=== PATIENT | female | born 1960 | race Caucasian/White ===

== ENCOUNTER 2017-07-16 15:22 | Outpatient (CLI) ==
[2017-07-16 15:49] LABS: BASOPHILS % (AUTO) 0.3 % (0.0-3.0); EOSINOPHILS # (AUTO) 0.2 K/ul (0.0-0.7); EOSINOPHILS % (AUTO) 2.3 % (0.0-7.0); HEMATOCRIT 41.9 % (37.0-47.0); HEMOGLOBIN 14.3 g/dl (12.0-16.0); IMMATURE GRANULOCYTE % (AUTO) 0.4 % (0.0-5.0); LYMPHOCYTES # (AUTO) 2.8 K/uL (0.60-3.4); MEAN CORPUSCULAR HEMOGLOBIN 30.5 pg (27.0-31.0); MEAN CORPUSCULAR HGB CONC 34.1 (31.8-35.4); MEAN CORPUSCULAR VOLUME 89.3 fl (81.0-99.0); MONOCYTES # (AUTO) 0.7 K/uL (0.4-2.0); MONOCYTES % (AUTO) 6.8 (0-10); NEUTROPHILS % (AUTO) 61.2; PLATELET COUNT 242 10^3/uL (140-440); RED BLOOD COUNT 4.69 10^6/ul (4.20-5.40); WHITE BLOOD COUNT 9.74 K/ul (4.6-10.2)
[2017-07-16 15:56] LABS: BILIRUBIN,URINE Negative (NEGATIVE); KETONES,URINE Negative (NEGATIVE); LEUKOCYTE ESTERASE ,URINE Negative (NEGATIVE); NITRITE,URINE Negative (NEGATIVE); PROTEIN,URINE Negative (NEGATIVE); URINE, BLOOD 1+ (NEGATIVE)
[2017-07-16 15:58] LABS: ADD URINE MICROSCOPIC YES
--- NOTE | 2017-07-16 16:00 | US ---
EXAM: Bilateral carotid artery Doppler History: Visual impairment Technique: Multiple sonographic images through the bilateral internal carotid arteries were obtained . Color duplex Doppler was used to interrogate vascular flow. Findings: The right ICA peak systolic velocities within normal limits measuring 1.2. Meters per second. The r ight ICA/cca PSV ratio is normal at 1.5. The right vertebral artery is patent and demonstrates anteg rade flow. Nicholson scale images demonstrate mild plaque buildup within the right internal carotid arter y. The left ICA peak systolic velocities within normal limits measuring 0.7 meters per second. The left ICA/cca PSV ratio is normal at 1.1. The left vertebral artery is patent and demonstrates antegrade flow. Nicholson scale images demonstrate mild plaque buildup within the left internal carotid artery Impression: No significant hemodynamic stenosis of the bilateral internal carotid arteries.
[2017-07-16 16:08] LABS: ALBUMIN 3.9 g/dL (3.4-5.0); ALBUMIN/GLOBULIN RATIO 1.08; ANION GAP 14.9; BILIRUBIN,TOTAL 0.47 mg/dL (0.00-1.20); BUN/CREATININE RATIO 19.04; CALCIUM 9.9 mg/dL (8.2-10.2); CHOL/HDL RATIO 3.2 (4.5-5.5); CREATININE 0.63 mg/dL (0.60-1.30); POTASSIUM 3.9 mmol/L (3.5-5.10); TOTAL PROTEIN 7.5 g/dL (6.4-8.2)
[2017-07-16 16:12] LABS: BACTERIA,URINE TRACE (NOT PRESENT)
== END 2017-07-16 15:23 | disposition home or self-care (01) ==
LOC: RAD 15:22
PROVIDERS: ATTEND General Practice
DX: R09.89 Other specified symptoms and signs involving the circulatory and respiratory systems (principal); H18.51 Endothelial corneal dystrophy
CPT/HCPCS: 36415; 80053; 80061; 81001; 85025

== ENCOUNTER 2017-07-30 08:35 | Outpatient (CLI) ==
[2017-07-30 14:13] LABS: BILIRUBIN,URINE Negative (NEGATIVE); KETONES,URINE Negative (NEGATIVE); LEUKOCYTE ESTERASE ,URINE Negative (NEGATIVE); NITRITE,URINE Negative (NEGATIVE); PROTEIN,URINE Negative (NEGATIVE); URINE, BLOOD 1+ (NEGATIVE)
[2017-07-30 14:14] LABS: ADD URINE MICROSCOPIC YES
--- NOTE | 2017-07-31 08:33 | MAMMO ---
EXAM: Bilateral digital screening mammogram (2-D and 3-D) History: Baseline screening. Findings: MLO and CC views of bilateral breasts demonstrate scattered fibroglandular breast parenchy ma. CAD was reviewed by the radiologist. Tomosynthesis was performed. There are no dominant masses, no suspicious microcalcifications and no architectural distortions Impression: Negative mammogram. Recommend followup routine screening mammography in 1 year. BIRADS 1
== END 2017-07-30 08:36 | disposition home or self-care (01) ==
LOC: RAD 08:35
PROVIDERS: ATTEND General Practice
DX: Z12.31 Encounter for screening mammogram for malignant neoplasm of breast (principal); R31.9 Hematuria, unspecified; E78.5 Hyperlipidemia, unspecified; R74.8 Abnormal levels of other serum enzymes
CPT/HCPCS: 36415; 77067; 80061; 81001; 84075

== ENCOUNTER 2017-08-19 07:26 | Outpatient (CLI) ==
[2017-08-19 08:12] LABS: CREATININE 0.67 mg/dL (0.60-1.30)
--- NOTE | 2017-08-19 10:12 | CT ---
Exam: CT of the abdomen and pelvis without and with contrast History: Hematuria Technique: [address] of the abdomen and pelvis. [address] of the abdomen. Del ayed [address] of the abdomen and pelvis for CT urogram. Multiplanar and three-dimensiona l reformations were performed. FINDINGS: The lung bases are clear. No significant liver abnormality. The adrenals, pancreas and sple en are unremarkable. The stomach and hiatus are unremarkable.The gallbladder appears normal. The christian endix is normal. Bowel loops demonstrate normal caliber. No inflamatory change seen in the mesentery or retroperitoneum. Atherosclerotic calcification of the aorta without aneurysm. Normal pelvic bowel loops. No inflammation of the pelvic fat. Prior hysterectomy. No acute finding s of the skeleton. Incidental pectus excavatum deformity of the chest wall. Symmetrically enhancing kidneys. There is a 4.4 mm nonobstructing calculus in the left kidney. No r enal masses are seen. There is no hydronephrosis or hydroureter. No ureteral filling defects are se en. Impression: 1. No inflammatory process, bowel or urinary obstruction is seen. 2. Single nonobstructing calculus in the left kidney 3. No renal or collecting system mass is seen.
== END 2017-08-19 07:27 | disposition home or self-care (01) ==
LOC: RAD 07:26
PROVIDERS: ATTEND Surgery
DX: R31.9 Hematuria, unspecified (principal)
CPT/HCPCS: 36415; 82565